=== PATIENT | male | born 1975 | race Caucasian/White ===

== ENCOUNTER 2024-08-27 23:25 | Emergency (ER) | payer OTHER, SELFPAY ==
[2024-08-27 23:29] VITALS: BP 165/91; PULSE 81; RESP 18; TEMP 36.3; O2SAT 97; BMI 38.4
[2024-08-27 23:46] LABS: Appearance Urine Cloudy (Clear); Bilirubin Urine Negative (Negative); Blood Urine 3+ (Negative); Color Urine Yellow (Yellow); Glucose Urine Negative (Negative); Ketones Urine 1+ (Negative); Leukocyte Esterase Urine Negative (Negative); Nitrite Urine Negative (Negative); Protein Urine 2+ (Negative); pH Urine 7.5 (5.0-8.5)
[2024-08-28 00:02] LABS: Bacteria Urine Many; RBC Urine 50-100 (0-2); Squamous Epithelial Cell Urine Moderate (None-Few)
[2024-08-28 00:03] LABS: Amorphous Sediment Urine Moderate
--- NOTE | 2024-08-28 00:30 | ED.MALEGU ---
HPI - Male Genitourinary General Time Seen by Provider: 00:30 Date Seen: 08/28/24 Chief complaint: Urogenital Problems, Male Stated complaint: blood in urine Time Seen by Provider: 08/28/24 00:29 Source: patient and RN notes reviewed Mode of arrival: ambulatory Limitations: no limitations History of Present Illness HPI Narrative: This 49-year-old male is coming in with painless hematuria. He started noting blood in his urine around 324 this afternoon. No trauma, no fevers, no abdominal pain, no nausea or vomiting. Notes no pain with urination. He does have a history of kidney stones but is always had significant pain with them. His notes that he did have low back pain yesterday, patient points to the left low back red pain yesterday. Pain has resolved. Patient has a history of smoking. Related Data Home Medications ?Medication ?Instructions ?Recorded ?Confirmed atorvastatin 20 mg tablet 20 mg PO .hs 11/10/22 07/01/24 epinephrine 0.3 mg/0.3 mL 0.3 ml IM .prn 11/10/22 07/01/24 injection, auto-injector losartan 100 1 tab PO DAILY 11/10/22 07/01/24 mg-hydrochlorothiazide 25 mg tablet Previous Rx's ?Medication ?Instructions ?Recorded hydrocodone 5 mg-acetaminophen 325 1 tab PO Q6H PRN pain #6 tabs 08/28/24 mg tablet potassium chloride 10 mEq 10 meq PO DAILY #7 tabs 08/28/24 tablet,extended release tamsulosin 0.4 mg capsule (Flomax) 0.4 mg PO DAILY #7 caps 08/28/24 Allergies Allergy/AdvReac Type Severity Reaction Status Date / Time bee venom protein (honey bee) Allergy Severe Anaphylaxis Verified 07/01/24 11:57 amoxicillin Allergy Mild Hives Verified 07/01/24 11:57 cephalexin (From Keflex) Allergy Mild Rash Verified 07/01/24 11:57 Review of Systems Status of ROS: Reports: 6 or more systems reviewed and unremarkable except as noted in History and below [facility] Medical History (Updated 08/28/24 @ 01:[address] MD) Nephrolithiasis ?N20.0 - Calculus of kidney (ICD-10) Social History Smoking Status: Current every day smoker Exam Const: Vital Signs, click to edit/add: Vital Signs - 24 hr 08/27/24 23:29 Temperature 97.4 F L Pulse Rate [Left P ulse Oximeter] 81 Respiratory Rate 18 Blood Pressure [Ri ght Upper Arm] 165/91 H Pulse Oximetry 97 Oxygen Delivery Me thod Room Air This 49-year-old male is alert, interactive, no apparent distress. He is sitting up on the edge of the bed. Sclera clear, speaking easily on room air. Lungs are clear, good air entry, no wheezing or crackles, no tachypnea. No CVA tenderness. CV regular rate and rhythm, no murmur, normal S1-S2, no S3-S4. Abdomen is obese but soft, nontender, nondistended. Skin visualized without rash. Patient is ambulatory into the ED of his own accord. Documenting provider has reviewed patient's vital signs: yes Course Course ED Course: Given his history kidney stones, reviewed with patient most likely causative etiology is nephrolithiasis. He has no fevers, no pain. Will get basic metabolic panel and CBC. We will visualize with CT abdomen pelvis without IV contrast. Have discussed with them that they may need to follow-up with urology, may eventually need cystoscopy to complete a painless hematuria evaluation. His wanted to know if that would happen tonight. Reviewed with her if he does need eventually see Urology, it would likely at least be weeks. Reevaluation(s) Time of Reevaluation #1: 01:38 Reevaluation #1: Have reviewed with patient that the CT showing stone in the right UVJ. He is having no pain at this time. Is the kidney stone that is very likely responsible for the hematuria. He has taken Vicodin in the past, will send a few tablets in in case he does have pain. Will place him on Flomax. Have reviewed the hypokalemia, will give him some oral tablets to take, can pick this up at the pharmacy. He will need to follow up for recheck of this. Plan discharge to home at this time. Vital Signs Vital signs: Initial Vital Signs Temperature 97.4 F L 08/27/24 23:29 Temperature Source Temporal Artery Scan 08/27/24 23:29 Pulse Rate 81 08/27/24 23:29 Pulse Rhythm Regular 10/29/24 23:29 Respiratory Rate 18 08/27/24 23:29 Blood Pressure 165/91 H 08/27/24 23:29 Blood Pressure Mean 115 H 08/27/24 23:29 Blood Pressure Position Sitting 08/27/24 23:29 Pulse Oximetry 97 08/27/24 23:29 Oxygen Delivery Method Room Air 08/27/24 23:29 Vital Signs Temperature 97.4 F L 08/27/24 23:29 Pulse Rate 81 08/27/24 23:29 Respiratory Rate 18 08/27/24 23:29 Blood Pressure 165/91 H 08/27/24 23:29 Pulse Oximetry 97 08/27/24 23:29 Oxygen Delivery Method Room Air 08/27/24 23:29 Temperature 97.4 F L 08/27/24 23:29 Pulse Rate 81 08/27/24 23:29 Respiratory Rate 18 08/27/24 23:29 Blood Pressure 165/91 H 08/27/24 23:29 Pulse Oximetry 97 08/27/24 23:29 Oxygen Delivery Method Room Air 08/27/24 23:29 MDM - Male Genitourinary Lab Data Attestation: I reviewed the patient's lab results. Labs: Lab Results 08/27/24 08/28/24 Range/Units 23:40 00:55 WBC 7.86 (4.50-11.00) K/uL RBC 4.49 (4.30-5.90) m/uL Hgb 14.3 (13.5-17.5) gm/dL Hct 42.4 (37.0-53.0) % MCV 94 (80-100) fL MCH 32 (26-34) pg MCHC 34 (32-36) gm/dL RDW Coeff of Tara 12.4 (11.5-15.5) % Plt Count 194 (140-440) K/uL Neut % (Auto) 55.5 (42.0-72.0) % Lymph % (Auto) 35.2 (20-44) % [place] % (Auto) 6.6 (0.0-11.0) % Eos % (Auto) 2.2 (0.0-7.0) % Baso % (Auto) 0.4 (0.0-3.0) % Neut # (Auto) 4.36 (1.7-7.0) K/uL Lymph # (Auto) 2.77 (0.90-2.90) K/uL [place] # (Auto) 0.50 (0.00-0.90) K/UL Eos # (Auto) 0.17 (0.00-0.50) K/uL Baso # (Auto) 0.03 (0.00-0.30) K/uL Abs Immat Gran (auto) 0.01 (0.00-0.30) K/uL Imm/Tot Granulo (auto) 0.1 % Sodium 135 (135-149) mmol/L Potassium 3.1 L (3.6-5.1) mmol/L Chloride 100 (96-114) mmol/L Carbon Dioxide 28 (20-32) mmol/L Anion Gap 7 (7-15) mEq/L BUN 20 (5-24) mg/dL Creatinine 1.3 (0.5-1.5) mg/dL Estimated Creat Clear 69.49 Estimated GFR 68 ml/min Glucose 99 (60-115) mg/dL Calcium 8.8 (8.4-10.6) mg/dL Urine Color Yellow (Yellow) Urine Appearance Cloudy A (Clear) Urine pH 7.5 (5.0-8.5) Ur Specific [place] 1.020 (1.000-1.030) Urine Protein 2+ A (Negative) Urine Glucose (UA) Negative (Negative) Urine Ketones 1+ A (Negative) Urine Blood 3+ A (Negative) Urine Nitrite Negative (Negative) Urine Bilirubin Negative (Negative) Urine Urobilinogen 2.0 A (0.2-1.0) Ur Leukocyte Esterase Negative (Negative) Urine RBC 50-100 A (0-2) Urine WBC 10-25 A (0-5) Ur Squamous Epith Cells Moderate A (None-Few) Amorphous Sediment Moderate A (None) Urine Bacteria Many A (None) Imaging Data CT scan - abdomen: Attestation: I have reviewed the pertinent imaging results. Radiologist's impression: Patient: TI RIOJAS Facility:?[facility] Patient ID:?[id number] Site Patient ID:?[id number]. Site :?[id number] Study:?CT-Abdomen/Pelvis W/O-08/28/2024 12:47:12 AM Ordering Physician:Jose Dorado Final Report: INDICATION: Hematuria. TECHNIQUE: CT abdomen and pelvis without contrast. COMPARISON: None. FINDINGS: Lower chest: Unremarkable. Liver: Normal in size and attenuation. Gallbladder and bile ducts: Status post cholecystectomy. Spleen: Normal in size. Adrenal glands: Normal in size. No nodules. Pancreas: No inflammation. Kidneys: 2 mm calculus at the right ureterovesical junction. No significant upstream hydroureteronephrosis. No stones or hydronephrosis in the left kidney. GI tract: Normal in caliber. No evidence of obstruction. Normal appendix. Lymph nodes: No lymphadenopathy. Vasculature: Mild scattered atherosclerotic calcifications. Abdominal aorta is normal in caliber. Abdominal wall/Omentum/Peritoneum: Unremarkable. No free air or significant free fluid. Pelvis: Unremarkable. Bones: Unremarkable for age. IMPRESSION: 2 mm right ureterovesical junction calculus without significant upstream hydroureteronephrosis. Please note that all CT scans at this facility use dose modulation, iterative reconstruction, and/or weight-based dosing when appropriate to reduce radiation dose to as low as reasonably achievable. Dictated by Ramakrishna Cardenas MD @ 08/28/2024 1:35:24 AM (Electronic Signature) Discharge Plan Discharge Clinical Impression: Kidney stone on right side, Hypokalemia Instructions: Kidney Stones (ED), Hypokalemia (ED) Additional Instructions: Drink plenty of fluids, goal is to have urine clear looking. Will send in few tablets of Vicodin should you start to have pain. Will put you on Flomax for the next week, this can help dilate the urinary system to allow the stone to pass. Your potassium was mildly low at 3.1. I will give you prescription to replace her potassium for the next week. The potassium should be rechecked within the next couple weeks, talk to your primary care provider about whether or not you need long-term potassium supplementation. The kidney stone is already going into the bladder, would be unlikely that it will not pass. If you do develop severe pain that is not controlled at home, have fever with this or vomiting, return to the ER for further evaluation. Activity Level: Activity as Tolerated Prescriptions: New hydrocodone-acetaminophen 5-325 mg tablet 1 tab PO Q6H PRN (Reason: pain) Qty: 6 0RF tamsulosin [Flomax] 0.4 mg capsule 0.4 mg PO DAILY Qty: 7 0RF potassium chloride 10 mEq tablet extended release 10 meq PO DAILY Qty: 7 0RF No Action epinephrine 0.3 mg/0.3 mL auto-injector 0.3 ml IM .prn Patient Comments: Inject 0.3 mg intramuscular one time if needed for Allergic Reaction losartan-hydrochlorothiazide 100-25 mg tablet 1 tab PO DAILY Patient Comments: TAKE ONE TABLET BY MOUTH ONE TIME DAILY atorvastatin 20 mg tablet 20 mg PO .hs Patient Comments: Take 1 Tablet (20 mg) by mouth at bedtime. Follow Up/Referrals: Provider,Not a Local [Non-Staff] - Stand Alone Forms: [employer] Info Instructions
--- NOTE | 2024-08-28 00:34 | CRLHL7_ITS ---
For Patients: As a result of the Century Cures Act, medical imaging exams and procedure reports are released immediately into your electronic medical record. You may view this report before your referring provider. If you have questions, please contact your health care provider. INDICATION: Hematuria. TECHNIQUE: CT abdomen and pelvis without contrast. COMPARISON: None. FINDINGS: Lower chest: Unremarkable. Liver: Normal in size and attenuation. Gallbladder and bile ducts: Status post cholecystectomy. Spleen: Normal in size. Adrenal glands: Normal in size. No nodules. Pancreas: No inflammation. Kidneys: 2 mm calculus at the right ureterovesical junction. No significant upstream hydroureteronephrosis. No stones or hydronephrosis in the left kidney. GI tract: Normal in caliber. No evidence of obstruction. Normal appendix. Lymph nodes: No lymphadenopathy. Vasculature: Mild scattered atherosclerotic calcifications. Abdominal aorta is normal in caliber. Abdominal wall/Omentum/Peritoneum: Unremarkable. No free air or significant free fluid. Pelvis: Unremarkable. Bones: Unremarkable for age. IMPRESSION: 2 mm right ureterovesical junction calculus without significant upstream hydroureteronephrosis. Please note that all CT scans at this facility use dose modulation, iterative reconstruction, and/or weight-based dosing when appropriate to reduce radiation dose to as low as reasonably achievable. Dictated by Ramakrishna Cardenas MD @ 08/28/2024 1:35:24 AM (Electronically Signed)
[2024-08-28 01:00] LABS: Basophils Absolute Auto 0.03 K/uL (0.00-0.30); Basophils Percent Auto 0.4 % (0.0-3.0); Eosinophils Absolute Auto 0.17 K/uL (0.00-0.50); Eosinophils Percent Auto 2.2 % (0.0-7.0); Hematocrit 42.4 % (37.0-53.0); Hemoglobin* 14.3 gm/dL (13.5-17.5); Immature Granulocytes Abs Auto 0.01 K/uL (0.00-0.30); Immature Granulocytes Pct Auto 0.1 %; Lymphocytes Absolute Auto 2.77 K/uL (0.90-2.90); Lymphocytes Percent Auto 35.2 % (20-44); Mean Corpuscular HGB Conc 34 gm/dL (32-36); Mean Corpuscular Hemoglobin 32 pg (26-34); Mean Corpuscular Volume 94 fL (80-100); Monocytes Percent Auto 6.6 % (0.0-11.0); Neutrophils Absolute Auto 4.36 K/uL (1.7-7.0); Neutrophils Percent Auto 55.5 % (42.0-72.0); Platelet Count* 194 K/uL (140-440); RDW Coefficient of Variation % 12.4 % (11.5-15.5); Red Blood Count 4.49 m/uL (4.30-5.90); White Blood Count* 7.86 K/uL (4.50-11.00)
[2024-08-28 01:01] LABS: Slide Review Reflex No
[2024-08-28 01:13] LABS: Chloride* 100 mmol/L (96-114); Potassium* 3.1 mmol/L (3.6-5.1); Sodium* 135 mmol/L (135-149)
[2024-08-28 01:16] LABS: Anion Gap 7 mEq/L (7-15); Carbon Dioxide* 28 mmol/L (20-32); Creatinine* 1.3 mg/dL (0.5-1.5); Est. Creatinine Clearance* 69.49; Estimated Glomerular Filt Rate 68 ml/min
[2024-08-28 01:17] LABS: Blood Urea Nitrogen* 20 mg/dL (5-24); Calcium* 8.8 mg/dL (8.4-10.6); Glucose* 99 mg/dL (60-115)
[2024-08-28 01:53] VITALS: BP 158/72; PULSE 80; RESP 16; O2SAT 99
== END 2024-08-28 01:54 | disposition home or self-care (01) ==
PROVIDERS: Emergency Provider Family Medicine; PCP Internal Medicine Cardiovascular Disease
DX: N20.0 Calculus of kidney (principal); E87.6 Hypokalemia
CPT/HCPCS: 36415; 74176; 80048; 81001; 85025; 87086; 99284